=== PATIENT | male | born 1980 | race Hispanic/Latino ===

== ENCOUNTER 2017-11-11 08:04 | Day surgery (SDC) | payer OTHER ==
[~2017-11-11] VITALS: Ht 180.3 cm; Wt 100.4 kg
[~2017-11-11 08:04] MED LIST: SODIUM CHLORIDE 0.9% 1000ML 1,000 ML IV ONE
[2017-11-11 09:19] VITALS: BP 114/71
[2017-11-11] MEDS ORDERED: PROPOFOL 10 MG/ML 20ML VIAL IV ONE ×4 (10:34→11:27)
[2017-11-11] MEDS ORDERED: EPINEPHRINE 1 MG/ML AMPULE ONE (10:58)
[2017-11-11 11:33] VITALS: BP 96/50
[2017-11-11 12:10] LABS: BASOPHILS % (AUTO) 0.7 % (0.0-5.0); EOSINOPHILS % (AUTO) 5.2 % (0.0-8.0); HEMATOCRIT 40.3 % (42-54); LYMPHOCYTES % (AUTO) 28.7 % (21.0-51.0); MEAN CORPUSCULAR HEMOGLOBIN 27.8 pg (27.0-33.0); MEAN CORPUSCULAR HGB CONC 34.1 g/dL (32.0-36.0); MEAN CORPUSCULAR VOLUME 81.5 fL (79-99); MONOCYTES % (AUTO) 5.4 % (3.0-13.0); PLATELET COUNT (AUTO) 200 K/uL (130-400); RED BLOOD CELL COUNT(AUTO) 4.95 MIL/uL (4.50-6.20); RED CELL DISTRIBUTION WIDTH 14.2 % (11.0-15.5); WHITE BLOOD COUNT (AUTO) 6.3 K/uL (4.8-10.8)
[2017-11-11 12:16] LABS: POTASSIUM 4.3 mmol/L (3.5-5.1)
[2017-11-11 12:21] LABS: BILIRUBIN,TOTAL 0.4 mg/dL (0.2-1.0); TOTAL PROTEIN, SERUM 6.2 g/dL (6.0-8.3)
== END 2017-11-11 12:15 | disposition home or self-care (01) ==
LOC: DAH 08:04 → ENDO 08:04
PROVIDERS: ATTEND Internal Medicine Gastroenterology
DX: D12.5 Benign neoplasm of sigmoid colon (principal); K21.9 Gastro-esophageal reflux disease without esophagitis; Z68.31 Body mass index [BMI] 31.0-31.9, adult; Z88.8 Allergy status to other drugs, medicaments and biological substances; Z85.038 Personal history of other malignant neoplasm of large intestine; Z79.899 Other long term (current) drug therapy
CPT/HCPCS: 36415; 43235; 45381; 45385; 80053; 82378; 85025; 88305; A4606; J0171; J2704 ×4; J7030

== ENCOUNTER → 2017-11-24 | Outpatient (CLI) | payer OTHER ==
[~2017-11-24] MED LIST changes: +ACET1TAB12 PO; +IOPAMIDOL-370 75 ML VIAL IV ONE; -SODIUM CHLORIDE 0.9% 1000ML 1,000 ML IV ONE
== END | disposition home or self-care (01) ==
LOC: DAH 07:50
PROVIDERS: ATTEND Internal Medicine Gastroenterology
DX: C18.7 Malignant neoplasm of sigmoid colon (principal)
CPT/HCPCS: 74178; Q9967

== ENCOUNTER 2017-11-27 15:30 | Inpatient (IN) | payer OTHER ==
[~2017-11-27] VITALS: Ht 185.4 cm; Wt 101.4 kg
[2017-11-27 16:17] LABS: APPEARANCE,URINE Clear (CLEAR); BILIRUBIN,URINE Negative (NEGATIVE); COLOR,URINE Dark Yellow (YELLOW); GLUCOSE, URINE (UA) Negative (NEGATIVE); KETONES,URINE Trace mg/dL (NEGATIVE); LEUKOCYTE ESTERASE ,URINE Negative (NEGATIVE); NITRATE,URINE Negative (NEGATIVE); OCCULT BLOOD,URINE Negative (NEGATIVE); PH,URINE 5.5 (5.0-8.0); PROTEIN,URINE Trace (NEGATIVE)
[2017-11-27 16:18] LABS: BASOPHILS % (AUTO) 0.7 % (0.0-5.0); EOSINOPHILS % (AUTO) 2.2 % (0.0-8.0); HEMATOCRIT 42.9 % (42-54); MEAN CORPUSCULAR HEMOGLOBIN 27.9 pg (27.0-33.0); MEAN CORPUSCULAR HGB CONC 34.8 g/dL (32.0-36.0); MEAN CORPUSCULAR VOLUME 80.3 fL (79-99); MONOCYTES % (AUTO) 15.6 % (3.0-13.0); NEUTROPHILS % (AUTO) 37.5 % (40.0-77.0); NUCLEATED RED BLOOD CELLS 0.1 % (0.0-0.19); PLATELET COUNT (AUTO) 193 K/uL (130-400); RED BLOOD CELL COUNT(AUTO) 5.34 MIL/uL (4.50-6.20); RED CELL DISTRIBUTION WIDTH 14.4 % (11.0-15.5); WHITE BLOOD COUNT (AUTO) 3.7 K/uL (4.8-10.8)
[2017-11-27 16:32] LABS: BACTERIA,URINE None Seen /HPF (None Seen); MUCUS,URINE Few LPF (None Seen); RBC,URINE None Seen /HPF (0-1); SQUAMOUS EPITHELIAL CELL,UR 0-2 /HPF (0-2); WBC,URINE None Seen /HPF (0-1)
[2017-11-27 16:33] LABS: CREATININE 1.2 mg/dL (0.5-1.5); POTASSIUM 3.8 mmol/L (3.5-5.1)
[2017-11-30 11:55] VITALS: BP 117/64
[2017-12-01] VITALS (31 sets, daily range): BP systolic 99–148; BP diastolic 63–97
[2017-12-01] MEDS ORDERED: LACTATED RINGERS 1000ML 1,000 ML IV ONE (09:11)
[2017-12-01] MEDS: CEFOXITIN SODIUM 2 GM VIAL ONE ×2 (09:33→12:05)
[2017-12-01] MEDS ORDERED: LIDOCAINE HCL 2% JELLY 5 ML ONE (10:43)
[2017-12-01] MEDS ORDERED: ROPIVACAINE 0.5% 5MG/ML 30ML IJ ONE (10:43)
[2017-12-01] MEDS ORDERED: MIDAZOLAM HCL 1 MG/ML 2ML VIAL ONE (10:43)
[2017-12-01] MEDS ORDERED: ROCURONIUM BROMIDE 10MG/1ML 5ML VL ONE (10:43)
[2017-12-01] MEDS ORDERED: LIDOCAINE PF 2% 5ML ABBOJECT ONE (10:43)
[2017-12-01] MEDS ORDERED: PROPOFOL 10 MG/ML 20ML VIAL IV ONE (10:43)
[2017-12-01] MEDS ORDERED: LIDOCAINE HCL MPF 1% 5ML VIAL ONE (10:43)
[2017-12-01] MEDS ORDERED: NEOSTIGMINE METHYLSULFATE 1MG/ML IV ONE (10:43)
[2017-12-01] MEDS ORDERED: GLYCOPYRROLATE 0.2 MG/ML 5 ML VIAL ONE (10:43)
[2017-12-01] MEDS ORDERED: DEXAMETHASONE SOD PHOSPHATE 10MG/ML 1ML VIAL ONE (10:44)
[2017-12-01] MEDS ORDERED: FENTANYL CITRATE PF 50 MCG/1 ML 5ML AMP IV ONE (10:44)
[2017-12-01] MEDS ORDERED: MORPHINE SULFATE 4 MG/1ML SYG IV PRN (13:45)
[2017-12-01] MEDS ORDERED: ONDANSETRON HCL MDV 20ML 2 MG/ML VIAL IVP PRN (13:45)
[2017-12-01] MEDS: CEFOXITIN SODIUM 1 GM VIAL IVP SCH (17:15)
[2017-12-01] MEDS ORDERED: CEFOXITIN 1GM+NS 100ML 100 ML IV SCH (18:00)
[2017-12-01] MEDS: D5W-1/2 NS/20MEQ KCL 1,000 ML IV SCH (18:43)
[2017-12-02] MEDS: CEFOXITIN SODIUM 1 GM VIAL IVP SCH ×2 (00:14→06:03)
[2017-12-02] MEDS: MORPHINE SULFATE 2 MG/ML 1ML SYG IV PRN ×3 (00:24→21:50)
[2017-12-02] MEDS: D5W-1/2 NS/20MEQ KCL 1,000 ML IV SCH ×3 (02:22→13:43)
[2017-12-02 03:08] VITALS: BP 129/79
[2017-12-02 03:45] LABS: BASOPHILS % (AUTO) 0.1 % (0.0-5.0); HEMATOCRIT 40.5 % (42-54); LYMPHOCYTES % (AUTO) 10.9 % (21.0-51.0); MEAN CORPUSCULAR HEMOGLOBIN 27.8 pg (27.0-33.0); MEAN CORPUSCULAR HGB CONC 34.7 g/dL (32.0-36.0); MEAN CORPUSCULAR VOLUME 80.1 fL (79-99); MONOCYTES % (AUTO) 5.7 % (3.0-13.0); NEUTROPHILS % (AUTO) 83.3 % (40.0-77.0); PLATELET COUNT (AUTO) 193 K/uL (130-400); RED BLOOD CELL COUNT(AUTO) 5.06 MIL/uL (4.50-6.20); RED CELL DISTRIBUTION WIDTH 14.2 % (11.0-15.5); WHITE BLOOD COUNT (AUTO) 8.5 K/uL (4.8-10.8)
[2017-12-02 04:01] LABS: CREATININE 1.2 mg/dL (0.5-1.5)
[2017-12-02 08:00] VITALS: BP 132/80
[2017-12-02 11:00] VITALS: BP 128/74
[2017-12-02 16:00] VITALS: BP 131/78
[2017-12-02 20:00] VITALS: BP 129/78
[2017-12-03] VITALS: BP 129/74
[2017-12-03 04:00] VITALS: BP 129/73
[2017-12-03 04:14] LABS: BASOPHILS % (AUTO) 0.2 % (0.0-5.0); EOSINOPHILS % (AUTO) 0.7 % (0.0-8.0); HEMATOCRIT 38.7 % (42-54); LYMPHOCYTES % (AUTO) 26.7 % (21.0-51.0); MEAN CORPUSCULAR HEMOGLOBIN 27.3 pg (27.0-33.0); MEAN CORPUSCULAR VOLUME 80.4 fL (79-99); MONOCYTES % (AUTO) 9.1 % (3.0-13.0); NEUTROPHILS % (AUTO) 63.3 % (40.0-77.0); PLATELET COUNT (AUTO) 188 K/uL (130-400); RED BLOOD CELL COUNT(AUTO) 4.81 MIL/uL (4.50-6.20); RED CELL DISTRIBUTION WIDTH 14.2 % (11.0-15.5); WHITE BLOOD COUNT (AUTO) 9.4 K/uL (4.8-10.8)
[2017-12-03 04:32] LABS: CREATININE 1.3 mg/dL (0.5-1.5); POTASSIUM 4.2 mmol/L (3.5-5.1)
[2017-12-03 08:00] VITALS: BP 130/81
[2017-12-03] MEDS: D5W-1/2 NS/20MEQ KCL 1,000 ML IV SCH ×3 (10:12→20:26)
[2017-12-03 11:00] VITALS: BP 131/75
[2017-12-03 16:00] VITALS: BP 125/72
[2017-12-03 19:00] VITALS: BP 134/76
[2017-12-03] MEDS: MORPHINE SULFATE 2 MG/ML 1ML SYG IV PRN (22:27)
[2017-12-04] VITALS (7 sets, daily range): BP systolic 114–140; BP diastolic 69–76
[2017-12-04 05:01] LABS: BASOPHILS % (AUTO) 0.6 % (0.0-5.0); EOSINOPHILS % (AUTO) 1.4 % (0.0-8.0); HEMATOCRIT 39.3 % (42-54); LYMPHOCYTES % (AUTO) 21.9 % (21.0-51.0); MEAN CORPUSCULAR HEMOGLOBIN 27.9 pg (27.0-33.0); MEAN CORPUSCULAR HGB CONC 34.7 g/dL (32.0-36.0); MEAN CORPUSCULAR VOLUME 80.2 fL (79-99); MONOCYTES % (AUTO) 10.4 % (3.0-13.0); NEUTROPHILS % (AUTO) 65.7 % (40.0-77.0); PLATELET COUNT (AUTO) 215 K/uL (130-400); RED CELL DISTRIBUTION WIDTH 14.2 % (11.0-15.5); WHITE BLOOD COUNT (AUTO) 9.1 K/uL (4.8-10.8)
[2017-12-04 05:17] LABS: CREATININE 1.2 mg/dL (0.5-1.5); POTASSIUM 3.8 mmol/L (3.5-5.1)
[2017-12-04] MEDS: MORPHINE SULFATE 2 MG/ML 1ML SYG IV PRN ×2 (14:36→20:37)
[2017-12-04] MEDS: D5W-1/2 NS/20MEQ KCL 1,000 ML IV SCH (18:49)
[2017-12-05 03:00] VITALS: BP 115/73
[2017-12-05 08:13] VITALS: BP 116/61
[2017-12-05] MEDS: MORPHINE SULFATE 2 MG/ML 1ML SYG IV PRN (10:15)
[2017-12-05] MEDS ORDERED: ACETAMINOPHEN-CODEINE 300/30MG TAB PO PRN (10:30)
[2017-12-05 12:00] VITALS: BP 109/67
[2017-12-05 16:00] VITALS: BP 122/72
[2017-12-05] MEDS: ACETAMINOPHEN-CODEINE 300/30MG TAB PO PRN (18:24)
[2017-12-05 19:00] VITALS: BP 131/76
[2017-12-05 23:00] VITALS: BP 126/64
[2017-12-06 03:00] VITALS: BP 115/61
[2017-12-06 08:00] VITALS: BP 106/69
[2017-12-06] MEDS ORDERED: ACET1TAB12 PO (08:25)
[2017-12-06] MEDS: ACETAMINOPHEN-CODEINE 300/30MG TAB PO PRN (08:34)
== END 2017-12-06 10:50 | disposition home or self-care (01) | DRG 331 ==
LOC: DAHIP 12-01 08:34 → 3BH 12-01 15:54
PROVIDERS: ADMIT Surgery; ATTEND Surgery
PROC: 0DTJ0ZZ Resection of Appendix, Open Approach (ICD-10-PCS; principal; 2017-12-01 12:05)
PROC: 0DBN0ZZ Excision of Sigmoid Colon, Open Approach (ICD-10-PCS; 2017-12-01 12:05)
DX: C18.7 Malignant neoplasm of sigmoid colon (principal); K63.5 Polyp of colon
CPT/HCPCS: 36415; 80048; 81001; 85025; 88309; A4218; A4344; J0694; J1100; J2001; J2250; J2704; J2710; J2795; J3010; J3480; J3490; J7030; J7120